=== PATIENT | male | born 1955 | race Hispanic/Latino ===

== ENCOUNTER 2018-05-04 22:24 | Inpatient (IN) | payer MEDICAID ==
[2018-05-04] MEDS ORDERED: Sodium Chloride 0.9% 1,000 ML IV ONE (23:33)
[2018-05-04 23:36] LABS: VENOUS BLOOD GAS BASE EXCESS 6.4 mmol/L (0.0-2.0); VENOUS BLOOD GAS PCO2 41 mmHg (40-60); VENOUS BLOOD GAS PO2 44 mm/Hg (30-55); VENOUS BLOOD PH 7.48 (7.32-7.43)
[2018-05-04 23:40] LABS: BASO # 0.1 K/uL (0.0-0.2); EOS # 0.1 K/uL (0.0-0.7); EOS % 1.3 % (0.0-4.0); HEMOGLOBIN 10.2 g/dL (12.0-18.0); LYMPH # 0.4 K/uL (1.0-4.3); LYMPH % 5.6 % (20.0-40.0); MEAN CELL VOLUME 88.3 fL (80.0-94.0); MEAN CORPUSCULAR HEMOGLOBIN 29.2 pg (27.0-31.0); MEAN CORPUSCULAR HGB CONC 33.1 g/dL (33.0-37.0); MEAN PLATELET VOLUME 7.9 fL (7.2-11.7); MONO # 0.5 K/uL (0.0-0.8); MONO % 7.6 % (0.0-10.0); NEUT % 84.5 % (50.0-75.0); NRBC % 0.1 % (0.0-2.0); PLATELET COUNT 186 K/uL (130-400); WHITE BLOOD COUNT 7.2 K/uL (4.8-10.8)
[2018-05-04 23:50] LABS: INR 1.2; PROTHROMBIN TIME 13.6 SECONDS (9.7-12.2)
[2018-05-04 23:52] LABS: ALB/GLOB RATIO 1.1 (1.0-2.1); ALBUMIN 3.7 g/dL (3.5-5.0); ALT/SGPT 27 U/L (21-72); AST/SGOT 31 U/L (17-59); BLOOD UREA NITROGEN 25 mg/dL (9-20); CALCIUM 8.9 mg/dl (8.6-10.4); GFR NON-AFRICAN AMERICAN > 60
--- NOTE | 2018-05-04 23:54 | C.PDOC ---
History Of Present Illness 63 year old male presents to the ER for abdominal pain, generalized achiness, and feeling lethargic for the past 3 days. Denies chest pain, nausea, or vomiting. Chief Complaint (Nursing): Abdominal Pain History Per: Patient History/Exam Limitations: no limitations Onset/Duration Of Symptoms: Days Current Symptoms Are (Timing): Still Present Quality Of Discomfort: Unable To Describe Exacerbating Factors: None Alleviating Factors: None Recent travel outside of the [place]: No Past Medical History Reviewed: Historical Data, Nursing Documentation, Vital Signs Vital Signs: Last Vital Signs Temp 103.1 F H 05/04/18 22:32 Pulse 117 H 05/04/18 22:32 Resp 20 05/04/18 22:32 BP 131/73 05/04/18 22:31 Pulse Ox 99 05/04/18 22:31 Family History: States: Unknown Family Hx - Social History Hx Alcohol Use: No Hx Substance Use: No - Immunization History Hx Tetanus Toxoid Vaccination: No Hx Influenza Vaccination: No Hx Pneumococcal Vaccination: No Review Of Systems Constitutional: Positive for: Other (Lethargic). Negative for: Fever, Chills Cardiovascular: Negative for: Chest Pain, Palpitations Respiratory: Negative for: Cough, Shortness of Breath Gastrointestinal: Positive for: Abdominal Pain. Negative for: Nausea, Vomiting Musculoskeletal: Positive for: Other (Generalized body aches) Physical Exam - Physical Exam Appears: Other (Clinically dehydrated) Skin: Normal Color, Warm, Dry Head: Atraumatic, Normacephalic Eye(s): bilateral: Normal Inspection Oral Mucosa: Dry Chest: Symmetrical, No Tenderness Cardiovascular: Rhythm Regular Respiratory: Normal Breath Sounds, No Rales, No Rhonchi, No Wheezing Gastrointestinal/Abdominal: Soft, Tenderness (Generalized), Guarding, No Rebound Extremity: Other (Severe swelling to bilateral lower extremities, erythema to right thigh tender to touch.) Neurological/Psych: Oriented x3, Normal Speech ED Course And Treatment - Laboratory Results Result Diagrams: 05/04/18 23:37 05/04/18 23:37 Lab Results: pO2 44 mm/Hg (30-55) 05/04/18 23:33 VBG pH 7.48 (7.32-7.43) H 05/04/18 23:33 VBG pCO2 41 mmHg (40-60) 05/04/18 23:33 VBG HCO3 29.5 mmol/L 05/04/18 23:33 VBG Total CO2 31.8 mmol/L (22-28) H 05/04/18 23:33 VBG O2 Sat (Calc) 84.3 % (40-65) H 05/04/18 23:33 VBG Base Excess 6.4 mmol/L (0.0-2.0) H 05/04/18 23:33 VBG Potassium 3.7 mmol/L (3.6-5.2) 05/04/18 23:33 Sodium 140.0 mmol/l (132-148) 05/04/18 23:33 Chloride 105.0 mmol/L (98-107) 05/04/18 23:33 Glucose 134 mg/dl (75-110) H 05/04/18 23:33 Lactate 1.7 mmol/L (0.7-2.1) 05/04/18 23:33 PT 13.6 SECONDS (9.7-12.2) H 05/04/18 23:37 INR 1.2 05/04/18 23:37 APTT 28 SECONDS (21-34) 05/04/18 23:37 Total Bilirubin 0.6 mg/dL (0.2-1.3) 05/04/18 23:37 AST 31 U/L (17-59) 05/04/18 23:37 ALT 27 U/L (21-72) 05/04/18 23:37 Alkaline Phosphatase 130 U/L (38-126) H 05/04/18 23:37 Total Protein 7.1 g/dL (6.3-8.3) 05/04/18 23:37 Albumin 3.7 g/dL (3.5-5.0) 05/04/18 23:37 Globulin 3.4 gm/dL (2.2-3.9) 05/04/18 23:37 Albumin/Globulin Ratio 1.1 (1.0-2.1) 05/04/18 23:37 O2 Sat by Pulse Oximetry: 99 (Room air) Pulse Ox Interpretation: Normal Progress Note: Blood work, CXR, and urinalysis ordered. Tylenol and IV fluids administered. Disposition Discussed With : Ava Chandler Doctor Will See Patient In The: Hospital Counseled Patient/Family Regarding: Diagnosis - Disposition Disposition: HOSPITALIZED Disposition Time: 05:08 Condition: STABLE Forms: [facility] (Honduran) - POA Present On Arrival: None - Clinical Impression Clinical Impression: Pneumonia, Cellulitis, DVT of proximal leg (deep vein thrombosis) - Scribe Statement The provider has reviewed the documentation as recorded by the Scribayse Ly All medical record entries made by the Scribe were at my direction and personally dictated by me. I have reviewed the chart and agree that the record accurately reflects my personal performance of the history, physical exam, medical decision making, and the department course for this patient. I have also personally directed, reviewed, and agree with the discharge instructions and disposition.
[2018-05-05 00:02] LABS: BANDS 1 % (0-2); LYMPHOCYTE 7 % (20-40); MONOCYTE 3 % (0-10); NEUTROPHIL 89 % (50-75); TOTAL CELLS COUNTED 100
[2018-05-05 00:03] LABS: PLATELET ESTIMATE NORMAL (NORMAL)
[2018-05-05] MEDS ORDERED: Sodium Chloride 0.9% 1,000 ML IV ONE (00:22)
[2018-05-05 01:24] LABS: SQUAMOUS EPITHIAL 2 /hpf (0-5); URINE BILIRUBIN NEGATIVE (NEGATIVE); URINE BLOOD 1+ (NEGATIVE); URINE CLARITY Clear (Clear); URINE COLOR Yellow (YELLOW); URINE GLUCOSE (UA) NORMAL (Normal); URINE LEUKOCYTE ESTERASE NEG Leu/uL (Negative); URINE PROTEIN NEGATIVE (NEGATIVE)
[2018-05-05] MEDS ORDERED: cefTRIAXone IV 1 gm in Dextros 50 ML IVPB ONE (03:40)
[2018-05-05] MEDS ORDERED: Enoxaparin 40 mg Syringe SC STA (03:43)
[2018-05-05] MEDS ORDERED: Azithromycin 500mg/250ML NS 500 MG/250 ML BAG IV STA (03:48)
[2018-05-05] MEDS ORDERED: Enoxaparin 40 mg Syringe ONE (04:11)
[2018-05-05] MEDS ORDERED: Azithromycin 500mg/250ML NS 500 MG/250 ML BAG IVPB ONE (04:19)
[2018-05-05] MEDS ORDERED: Iodixanol 320 MG/ML 100 ML BOTTLE IV ONE (05:39)
--- NOTE | 2018-05-05 07:41 | CT ---
CT abdomen and pelvis HISTORY: Abdominal pain. COMPARISON: None available. TECHNIQUE: Multiple contiguous axial images were performed through the abdomen and pelvis with the use of intravenous contrast. Subsequently, sagittal and coronal reformatted images were obtained. Findings: Small bilateral pleural effusions. Bibasilar atelectasis with some focal nodular consolidation seen at the anterior aspect of the left lower lobe. No pericardial effusion. Nodular and cirrhotic contour of the liver. Prominent perigastric and periesophageal varicosities. Cholelithiasis. Minimal gas density within the gallbladder on series series 3, images 61-66. Dilated common bile duct with mildly obstructing calculi in the distal aspect of the common bile duct suggestive for choledocholithiasis. 2.2 centimeter low-attenuation lesion seen within the spleen demonstrating a Hounsfield unit of 22, indeterminate. Adrenal glands are preserved. Pancreas is preserved. Underdistention and or mild thickening of the stomach. Kidneys are grossly preserved. Urinary bladder is grossly preserved. Lower abdominal bowel is grossly preserved. Colonic diverticulosis. Atherosclerotic calcification and plaque within the aorta. Bilateral gynecomastia. Degenerative changes in the spine. Impression: 1. Cholelithiasis. Minimal gas density in the gallbladder. This can be secondary to sphincterotomy or a fistulous tract between the gallbladder and the adjacent duodenum. Clinical correlation. 2. Dilated common bile duct. Mildly obstructing calculus in the distal aspect of the common bile duct with choledocholithiasis. Clinical correlation. 3. Cirrhotic liver. Prominent perigastric and periesophageal varicosities. 4. Bilateral inguinal lymphadenopathy measuring up to 3.7 x 1.8 centimeters on the right and up to 2.8 x 1.4 centimeters on the left. Clinical correlation. 5. 2.1 centimeter well-defined low-attenuation lesion in the spleen, nonspecific. Clinical correlation. 6. Small bilateral pleural effusions. Passive atelectasis and airspace disease of the lower lobes. 7. Colonic diverticulosis. 8. Atherosclerotic calcification and plaque within the aorta. 9. Bilateral gynecomastia. A preliminary report was generated at 6:30 a.m. on 05/05/[address] Alanna Kwong from [facility]
--- NOTE | 2018-05-05 09:10 | RAD ---
Chest x-ray single frontal view HISTORY: Fever. COMPARISON: None available. FINDINGS: Moderate venous congestion. Patchy consolidative opacification in the mid to lower lung zone with small pleural effusion. Cardiomegaly. Enlarged ectatic aorta. Degenerative changes in the spine and shoulders. Question deformities of several left lateral ribs. Biapical thickening with upper lobe granulomatous changes. IMPRESSION: Moderate venous congestion. Patchy consolidative opacification in the mid to lower lung zone with small pleural effusion. Cardiomegaly. Enlarged ectatic aorta. Degenerative changes in the spine and shoulders. Question deformities of several left lateral ribs. Biapical thickening with upper lobe granulomatous changes.
--- NOTE | 2018-05-05 13:29 | VASCLAB ---
Date of service: 05/05/2018 PROCEDURE: Left Lower Extremity Venous Duplex Exam. HISTORY: Swelling and tenderness, positive D-dimer PRIORS: None. TECHNIQUE: Left common femoral, femoral, popliteal and posterior tibial, peroneal and great saphenous veins were evaluated. Flow was assessed with color Doppler, compressibility, assessment of phasic flow and augmentation response. Report prepared by SALINA Verma FINDINGS: LEFT: 1. Common Femoral Vein: 1.1. Compressibility - Fully compressible: Thrombus - None : Flow - Phasic: Augmentation -Normal: Reflux - None. 2. Femoral Vein: 2.1. Compressibility - Fully compressible: Thrombus - None: Flow - Phasic: Augmentation -Normal: Reflux - None. 3. Popliteal Vein: 3.1. Compressibility - Fully compressible: Thrombus - None: Flow - Phasic: Augmentation -Normal: Reflux - None. 4. Posterior Tibial Vein: NOT VISIBLE DUE TO SWELLING 5. Peroneal Vein: NOT VISIBLE DUE TO SWELLING 6. Great Saphenous Vein (upper) 6.1. Compressibility - Fully compressible: Thrombus - None: Flow - Phasic: Augmentation - Normal: Reflux - None. OTHER FINDINGS: Normal venous flow noted in the RIGHT common femoral vein. IMPRESSION: No evidence of deep or superficial vein thrombosis of the left lower extremity, for the examined veins. Technically difficult exam, due to patient intolerance to probe compressions.
[2018-05-05] MEDS: Piperacill/Tazo 3.375gm in Dex 3.375 GM/50 ML BAG IVPB SCH (17:42)
[2018-05-05] MEDS: Enoxaparin 120 mg Syringe SC SCH (18:35)
[2018-05-05 19:27] VITALS: RESP 20
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
[2018-05-06] MEDS: Piperacill/Tazo 3.375gm in Dex 3.375 GM/50 ML BAG IVPB SCH ×3 (01:00→17:49)
[2018-05-06] MEDS: Enoxaparin 120 mg Syringe SC SCH (03:18)
[2018-05-06 06:24] LABS: BARBITURATES, UR NEGATIVE (NEGATIVE); BENZODIAZEPINES, UR NEGATIVE (NEGATIVE); OPIATES, UR NEGATIVE (NEGATIVE); PHENCYCLIDINE, UR NEGATIVE (NEGATIVE)
--- NOTE | 2018-05-06 08:58 | CP.PCM.PCO ---
Physician Communication Note - Physician Communication Note Physician Communication Note: See above
[2018-05-06] MEDS: Enoxaparin 40 mg Syringe SC SCH (09:37)
--- NOTE | 2018-05-06 10:57 | CP.PCM.PN ---
Subjective - Date & Time of Evaluation Date of Evaluation: 05/06/18 Time of Evaluation: 10:54 - Subjective Subjective: still coughing legs swallen and severe dermatitis Objective - Vital Signs/Intake and Output Vital Signs (last 24 hours): Temp Pulse Resp BP Pulse Ox 98.0 F 72 20 113/63 94 L 05/06/18 07:45 05/06/18 07:45 05/06/18 07:45 05/06/18 07:45 05/06/18 07:45 Intake and Output: 05/06/18 05/06/18 06:59 18:59 Intake Total 250 Balance 250 - Medications Medications: Current Medications Acetaminophen (Tylenol 325mg Tab) 650 mg PO Q6 PRN PRN Reason: Pain, moderate (4-7) Last Admin: 05/06/18 03:19 Dose: 650 mg Enoxaparin Sodium (Lovenox) 40 mg SC DAILY [facility] Last Admin: 05/06/18 09:37 Dose: 40 mg Piperacillin Sod/Tazobactam Sod (Zosyn 3.375 Gm Iv Premix) 3.375 gm in 50 mls @ 100 mls/hr IVPB Q8H [facility]; Protocol Last Admin: 05/06/18 09:40 Dose: 100 mls/hr Methadone HCl (Methadone) 50 mg PO DAILY [facility] Last Admin: 05/06/18 09:37 Dose: 50 mg - Labs Labs: 05/04/18 23:37 05/04/18 23:37 PT 13.6 SECONDS (9.7-12.2) H 05/04/18 23:37 INR 1.2 05/04/18 23:37 APTT 28 SECONDS (21-34) 05/04/18 23:37 - Constitutional Appears: In Acute Distress - Head Exam Head Exam: ATRAUMATIC - Eye Exam Eye Exam: Normal appearance Pupil Exam: NORMAL ACCOMODATION - ENT Exam ENT Exam: Normal Exam - Neck Exam Neck Exam: Full ROM - Respiratory Exam Respiratory Exam: Decreased Breath Sounds - Cardiovascular Exam Cardiovascular Exam: REGULAR RHYTHM - GI/Abdominal Exam GI & Abdominal Exam: Soft - Rectal Exam Rectal Exam: NORMAL INSPECTION - Extremities Exam Additional comments: sawaled and dermatitos - Back Exam Back Exam: NORMAL INSPECTION - Neurological Exam Neurological Exam: Awake, Normal Gait, Oriented x3 - Psychiatric Exam Psychiatric exam: Normal Affect - Skin Skin Exam: Dry, Mottled Assessment and Plan - Assessment and Plan (Free Text) Assessment: ac brochitis pnumonitis lower ext dermatitis neuropathy Plan: as per orders
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
[2018-05-07] MEDS: Piperacill/Tazo 3.375gm in Dex 3.375 GM/50 ML BAG IVPB SCH ×3 (00:30→17:52)
[2018-05-07] MEDS: Enoxaparin 40 mg Syringe SC SCH (09:20)
[2018-05-07] MEDS: Ammonium Lactate 12% Lotion (225 g) EXT SCH (09:20)
--- NOTE | 2018-05-07 11:48 | CP.PCM.PN ---
Subjective - Date & Time of Evaluation Date of Evaluation: 05/07/18 Time of Evaluation: 11:45 - Subjective Subjective: pt still c/o of pain loer ext cough Objective - Vital Signs/Intake and Output Vital Signs (last 24 hours): Temp Pulse Resp BP Pulse Ox 98.1 F 80 20 153/80 H 95 05/07/18 08:00 05/07/18 08:00 05/07/18 08:00 05/07/18 08:00 05/07/18 08:00 Intake and Output: 05/07/18 05/07/18 06:59 18:59 Intake Total 800 Output Total 1200 Balance -400 - Medications Medications: Current Medications Acetaminophen (Tylenol 325mg Tab) 650 mg PO Q6 PRN PRN Reason: Pain, moderate (4-7) Last Admin: 05/07/18 00:45 Dose: 650 mg Enoxaparin Sodium (Lovenox) 40 mg SC DAILY [facility] Last Admin: 05/07/18 09:20 Dose: 40 mg Hydrocortisone (Cortizone 0.5% Cream) 0 applic TOP BID [facility] Last Admin: 05/07/18 09:21 Dose: 1 applic Piperacillin Sod/Tazobactam Sod (Zosyn 3.375 Gm Iv Premix) 3.375 gm in 50 mls @ 100 mls/hr IVPB Q8H [facility]; Protocol Last Admin: 05/07/18 08:07 Dose: 100 mls/hr Lactic Acid (Lac-Hydrin 12% Lotion (225 G)) 0 gm EXT DAILY [facility] Last Admin: 05/07/18 09:20 Dose: 1 applic Methadone HCl (Methadone) 50 mg PO DAILY [facility] Last Admin: 05/07/18 09:20 Dose: 50 mg - Labs Labs: 05/04/18 23:37 05/04/18 23:37 PT 13.6 SECONDS (9.7-12.2) H 05/04/18 23:37 INR 1.2 05/04/18 23:37 APTT 28 SECONDS (21-34) 05/04/18 23:37 - Constitutional Appears: In Acute Distress - Head Exam Head Exam: ATRAUMATIC - Eye Exam Eye Exam: Normal appearance Pupil Exam: NORMAL ACCOMODATION - ENT Exam ENT Exam: Mucous Membranes Moist - Neck Exam Neck Exam: Normal Inspection - Respiratory Exam Respiratory Exam: Decreased Breath Sounds - Cardiovascular Exam Cardiovascular Exam: REGULAR RHYTHM - GI/Abdominal Exam GI & Abdominal Exam: Normal Bowel Sounds - Rectal Exam Rectal Exam: NORMAL INSPECTION - Exam Exam: NORMAL INSPECTION - Extremities Exam Additional comments: cleane dressing on - Back Exam Back Exam: NORMAL INSPECTION - Neurological Exam Neurological Exam: Awake - Psychiatric Exam Psychiatric exam: Normal Affect - Skin Skin Exam: Normal Color, Pallor Assessment and Plan - Assessment and Plan (Free Text) Assessment: ac cough ac dermatitis pain lower ext neuropathy Plan: cont as per orders
[2018-05-08] MEDS: Piperacill/Tazo 3.375gm in Dex 3.375 GM/50 ML BAG IVPB SCH ×3 (00:15→16:58)
[2018-05-08] MEDS: Enoxaparin 40 mg Syringe SC SCH (09:19)
[2018-05-08] MEDS: Ammonium Lactate 12% Lotion (225 g) EXT SCH (09:53)
--- NOTE | 2018-05-08 10:37 | CP.PCM.PN ---
Subjective - Date & Time of Evaluation Date of Evaluation: 05/08/18 Time of Evaluation: 10:35 - Subjective Subjective: c/o of painlower ext and swallen and numness Objective - Vital Signs/Intake and Output Vital Signs (last 24 hours): Temp Pulse Resp BP Pulse Ox 97.8 F 66 20 119/73 96 05/08/18 08:00 05/08/18 08:00 05/08/18 08:00 05/08/18 08:00 05/08/18 08:00 Intake and Output: 05/08/18 05/08/18 06:59 18:59 Intake Total 350 Output Total 700 Balance -350 - Medications Medications: Current Medications Acetaminophen (Tylenol 325mg Tab) 650 mg PO Q6 PRN PRN Reason: Pain, moderate (4-7) Last Admin: 05/07/18 00:45 Dose: 650 mg Enoxaparin Sodium (Lovenox) 40 mg SC DAILY [facility] Last Admin: 05/08/18 09:19 Dose: 40 mg Furosemide (Lasix) 20 mg PO DAILY [facility] Gabapentin (Neurontin) 300 mg PO BID [facility] Last Admin: 05/08/18 09:19 Dose: 300 mg Hydrocortisone (Cortizone 0.5% Cream) 0 applic TOP BID [facility] Last Admin: 05/08/18 09:20 Dose: 1 applic Piperacillin Sod/Tazobactam Sod (Zosyn 3.375 Gm Iv Premix) 3.375 gm in 50 mls @ 100 mls/hr IVPB Q8H [facility]; Protocol Last Admin: 05/08/18 09:20 Dose: 100 mls/hr Lactic Acid (Lac-Hydrin 12% Lotion (225 G)) 0 gm EXT DAILY [facility] Last Admin: 05/08/18 09:53 Dose: 1 applic Methadone HCl (Methadone) 50 mg PO DAILY [facility] Last Admin: 05/08/18 09:19 Dose: 50 mg - Labs Labs: 05/04/18 23:37 05/04/18 23:37 PT 13.6 SECONDS (9.7-12.2) H 05/04/18 23:37 INR 1.2 05/04/18 23:37 APTT 28 SECONDS (21-34) 05/04/18 23:37 - Constitutional Appears: Non-toxic - Head Exam Head Exam: NORMAL INSPECTION - Eye Exam Eye Exam: Normal appearance Pupil Exam: NORMAL ACCOMODATION - ENT Exam ENT Exam: Mucous Membranes Moist - Neck Exam Neck Exam: Full ROM - Respiratory Exam Respiratory Exam: Clear to Ausculation Bilateral, Rhonchi - Cardiovascular Exam Cardiovascular Exam: REGULAR RHYTHM - GI/Abdominal Exam GI & Abdominal Exam: Normal Bowel Sounds - Rectal Exam Rectal Exam: NORMAL INSPECTION - Exam Exam: NORMAL INSPECTION - Extremities Exam Extremities Exam: Pedal Edema, Tenderness - Back Exam Back Exam: NORMAL INSPECTION - Neurological Exam Neurological Exam: Awake, Oriented x3 - Psychiatric Exam Psychiatric exam: Flat Affect - Skin Skin Exam: Normal Color, Pallor Assessment and Plan - Assessment and Plan (Free Text) Assessment: asthma infection swallen legs aneamia dm Plan: as per orders and arrange for placement
[2018-05-08] MEDS: Albuterol 0.083% Inhal Sol (2.5 mg/3 mL) UD INH SCH ×2 (14:02→19:42)
[2018-05-09] MEDS: Piperacill/Tazo 3.375gm in Dex 3.375 GM/50 ML BAG IVPB SCH ×3 (00:24→17:40)
[2018-05-09] MEDS: Albuterol 0.083% Inhal Sol (2.5 mg/3 mL) UD INH SCH ×5 (02:44→21:05)
[2018-05-09] MEDS: Enoxaparin 40 mg Syringe SC SCH (09:36)
[2018-05-09] MEDS: Ammonium Lactate 12% Lotion (225 g) EXT SCH (09:48)
[2018-05-10] MEDS: Piperacill/Tazo 3.375gm in Dex 3.375 GM/50 ML BAG IVPB SCH ×3 (01:30→17:38)
[2018-05-10] MEDS: Albuterol 0.083% Inhal Sol (2.5 mg/3 mL) UD INH SCH ×4 (01:44→19:45)
[2018-05-10] MEDS: Enoxaparin 40 mg Syringe SC SCH (09:53)
[2018-05-10] MEDS: Ammonium Lactate 12% Lotion (225 g) EXT SCH (10:00)
--- NOTE | 2018-05-10 10:49 | CP.PCM.PN ---
Subjective - Date & Time of Evaluation Date of Evaluation: 05/10/18 Time of Evaluation: 10:47 - Subjective Subjective: pt c/o of sore throat and cough Objective - Vital Signs/Intake and Output Vital Signs (last 24 hours): Temp Pulse Resp BP Pulse Ox 98.2 F 73 20 122/66 96 05/10/18 06:00 05/09/18 23:11 05/09/18 23:11 05/10/18 09:52 05/09/18 23:11 Intake and Output: 05/10/18 05/10/18 06:59 18:59 Intake Total 700 Output Total 400 Balance 300 - Medications Medications: Current Medications Acetaminophen (Tylenol 325mg Tab) 650 mg PO Q6 PRN PRN Reason: Pain, moderate (4-7) Last Admin: 05/07/18 00:45 Dose: 650 mg Albuterol Sulfate (Albuterol 0.083% Inhal Shantell (2.5 Mg/3 Ml) Ud) 2.5 mg INH RQ6 [facility] Last Admin: 05/10/18 07:05 Dose: 2.5 mg Enoxaparin Sodium (Lovenox) 40 mg SC DAILY [facility] Last Admin: 05/10/18 09:53 Dose: 40 mg Furosemide (Lasix) 20 mg PO DAILY [facility] Last Admin: 05/10/18 09:52 Dose: 20 mg Gabapentin (Neurontin) 300 mg PO BID [facility] Last Admin: 05/10/18 09:53 Dose: 300 mg Hydrocortisone (Cortizone 0.5% Cream) 0 applic TOP BID [facility] Last Admin: 05/10/18 10:00 Dose: 1 applic Piperacillin Sod/Tazobactam Sod (Zosyn 3.375 Gm Iv Premix) 3.375 gm in 50 mls @ 100 mls/hr IVPB Q8H [facility]; Protocol Last Admin: 05/10/18 08:35 Dose: 100 mls/hr Lactic Acid (Lac-Hydrin 12% Lotion (225 G)) 0 gm EXT DAILY [facility] Last Admin: 05/10/18 10:00 Dose: 1 applic Methadone HCl (Methadone) 50 mg PO DAILY [facility] Last Admin: 05/10/18 09:53 Dose: 50 mg - Labs Labs: 05/04/18 23:37 05/04/18 23:37 PT 13.6 SECONDS (9.7-12.2) H 05/04/18 23:37 INR 1.2 05/04/18 23:37 APTT 28 SECONDS (21-34) 05/04/18 23:37 - Constitutional Appears: Non-toxic - Head Exam Head Exam: ATRAUMATIC - Eye Exam Eye Exam: Normal appearance Pupil Exam: NORMAL ACCOMODATION - ENT Exam ENT Exam: Mucous Membranes Moist - Neck Exam Neck Exam: Full ROM - Respiratory Exam Respiratory Exam: Decreased Breath Sounds - Cardiovascular Exam Cardiovascular Exam: REGULAR RHYTHM - GI/Abdominal Exam GI & Abdominal Exam: Normal Bowel Sounds - Extremities Exam Additional comments: dermatitis - Back Exam Back Exam: NORMAL INSPECTION - Neurological Exam Neurological Exam: Alert, Awake, Oriented x3 - Skin Skin Exam: Pallor Assessment and Plan - Assessment and Plan (Free Text) Assessment: dm dermatitis ac pharyngitis cough Plan: as per orders
[2018-05-10] MEDS: Benzocaine/Menthol (Cepacol) Lozenge MT SCH ×2 (13:21→17:36)
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
--- NOTE | 2018-05-10 23:04 | CP.PCM.PN ---
Subjective - Date & Time of Evaluation Date of Evaluation: 05/10/18 Time of Evaluation: 13:00 - Subjective Subjective: Podiatry Progress Note for Dr. Johnson 63 year old male patient seen and evaluated for bilateral edema with xerosis. Patient reports has been having nursing change apply lotion to bilateral foot and apply JERZY wraps. Patient reports having swelling to lower extremity for a long time. Denies nausea, fever, shortness of breath, chest pains or chills. Objective - Vital Signs/Intake and Output Vital Signs (last 24 hours): Temp Pulse Resp BP Pulse Ox 98.6 F 74 20 100/58 L 93 L 05/10/18 16:40 05/10/18 16:40 05/10/18 16:40 05/10/18 16:40 05/10/18 16:40 Intake and Output: 05/10/18 05/11/18 18:59 06:59 Intake Total 350 400 Balance 350 400 - Medications Medications: Current Medications Acetaminophen (Tylenol 325mg Tab) 650 mg PO Q6 PRN PRN Reason: Pain, moderate (4-7) Last Admin: 05/10/18 15:07 Dose: 650 mg Albuterol Sulfate (Albuterol 0.083% Inhal Shantell (2.5 Mg/3 Ml) Ud) 2.5 mg INH RQ6 [facility] Last Admin: 05/10/18 19:45 Dose: 2.5 mg Benzocaine/Menthol (Cepacol Sore Throat) 1 pankaj MT TID [facility] Last Admin: 05/10/18 17:36 Dose: 1 pankaj Enoxaparin Sodium (Lovenox) 40 mg SC DAILY [facility] Last Admin: 05/10/18 09:53 Dose: 40 mg Furosemide (Lasix) 20 mg PO DAILY [facility] Last Admin: 05/10/18 09:52 Dose: 20 mg Gabapentin (Neurontin) 300 mg PO BID [facility] Last Admin: 05/10/18 17:35 Dose: 300 mg Hydrocortisone (Cortizone 0.5% Cream) 0 applic TOP BID [facility] Last Admin: 05/10/18 17:34 Dose: 1 applic Piperacillin Sod/Tazobactam Sod (Zosyn 3.375 Gm Iv Premix) 3.375 gm in 50 mls @ 100 mls/hr IVPB Q8H [facility]; Protocol Last Admin: 05/10/18 17:38 Dose: 100 mls/hr Lactic Acid (Lac-Hydrin 12% Lotion (225 G)) 0 gm EXT DAILY [facility] Last Admin: 05/10/18 10:00 Dose: 1 applic Methadone HCl (Methadone) 50 mg PO DAILY [facility] Last Admin: 05/10/18 09:53 Dose: 50 mg - Labs Labs: 05/04/18 23:37 05/04/18 23:37 PT 13.6 SECONDS (9.7-12.2) H 05/04/18 23:37 INR 1.2 05/04/18 23:37 APTT 28 SECONDS (21-34) 05/04/18 23:37 - Constitutional Appears: Well, Non-toxic, No Acute Distress - Extremities Exam Extremities Exam: absent: Calf Tenderness Additional comments: Vascular: DP/PT pulses 1/4, CFT < 3 seconds to all digits, TG warm to warm, pedal hair absent, +1 pitting edema to legs circumfrentially Ortho: Tenderness to palpation of b/l lower extremities, MMT 4/5 in all compartments, no pain upon palpation of calf compression bilaterally Neuro: Gross and protective sensation intact Derm: Patchy xerosis, scales, and lichenification noted circumfrentially to b/l legs. No drainage, no purulence, no open wounds appreciated. Mild erythema appreciated to bilateral lower extremities beginning at the tibial tuberosity extending distally to the digits. No interdigital maceration appreciated. Small varicosites appreciated to the anterior aspect of legs bilaterally - Neurological Exam Neurological Exam: Alert, Awake, Oriented x3 Assessment and Plan - Assessment and Plan (Free Text) Assessment: 63 year old male patient with bilateral edema and xerosis- stable, no infection Plan: Patient seen and evaluated with all questions and concerns addressed Patient discussed in detail with Dr. Johnson VSS, WBC on 05/04/18 7.2 LE US; no evidence of DVT B/L lower extremities well hydrated with lotion and JERZY wraps applied to aid in reducing LE edema Ammonium lactate lotion ordered and to be applied daily Thank you for the consult and allowing us to partake in the care of this patient Patient is stable per podiatry standpoint Patient to follow up with Dr. Johnson upon discharge within 1 week in his office Continue to appear lotion everyday, let dry, and wrap JERZY for compression
[2018-05-11] MEDS: Piperacill/Tazo 3.375gm in Dex 3.375 GM/50 ML BAG IVPB SCH ×3 (00:30→17:00)
[2018-05-11] MEDS: Albuterol 0.083% Inhal Sol (2.5 mg/3 mL) UD INH SCH ×4 (01:32→19:53)
[2018-05-11] MEDS: Ammonium Lactate 12% Lotion (225 g) EXT SCH (10:03)
[2018-05-11] MEDS: Enoxaparin 40 mg Syringe SC SCH (10:03)
[2018-05-11] MEDS: Benzocaine/Menthol (Cepacol) Lozenge MT SCH ×3 (10:03→17:30)
--- NOTE | 2018-05-11 11:21 | CP.PCM.PN ---
Subjective - Date & Time of Evaluation Date of Evaluation: 05/11/18 Time of Evaluation: 11:18 - Subjective Subjective: pt still c/o of cough leg pain Objective - Vital Signs/Intake and Output Vital Signs (last 24 hours): Temp Pulse Resp BP Pulse Ox 97.8 F 69 20 132/78 99 05/11/18 07:24 05/11/18 07:24 05/11/18 07:24 05/11/18 10:04 05/11/18 07:24 Intake and Output: 05/11/18 05/11/18 06:59 18:59 Intake Total 850 Balance 850 - Medications Medications: Current Medications Acetaminophen (Tylenol 325mg Tab) 650 mg PO Q6 PRN PRN Reason: Pain, moderate (4-7) Last Admin: 05/10/18 15:07 Dose: 650 mg Albuterol Sulfate (Albuterol 0.083% Inhal Shantell (2.5 Mg/3 Ml) Ud) 2.5 mg INH RQ6 [facility] Last Admin: 05/11/18 07:36 Dose: 2.5 mg Benzocaine/Menthol (Cepacol Sore Throat) 1 pankaj MT TID [facility] Last Admin: 05/11/18 10:03 Dose: 1 pankaj Buspirone HCl (Buspar) 10 mg PO BID [facility] Enoxaparin Sodium (Lovenox) 40 mg SC DAILY [facility] Last Admin: 05/11/18 10:03 Dose: 40 mg Furosemide (Lasix) 20 mg PO DAILY [facility] Last Admin: 05/11/18 10:04 Dose: 20 mg Gabapentin (Neurontin) 300 mg PO BID [facility] Last Admin: 05/11/18 10:02 Dose: 300 mg Hydrocortisone (Cortizone 0.5% Cream) 0 applic TOP BID [facility] Last Admin: 05/11/18 10:03 Dose: 1 applic Piperacillin Sod/Tazobactam Sod (Zosyn 3.375 Gm Iv Premix) 3.375 gm in 50 mls @ 100 mls/hr IVPB Q8H [facility]; Protocol Last Admin: 05/11/18 10:00 Dose: 100 mls/hr Lactic Acid (Lac-Hydrin 12% Lotion (225 G)) 0 gm EXT DAILY [facility] Last Admin: 05/11/18 10:03 Dose: 1 applic Methadone HCl (Methadone) 50 mg PO DAILY [facility] Last Admin: 05/11/18 10:02 Dose: 50 mg Mupirocin (Bactroban Ointment) 2 gm TOP BID [facility] - Labs Labs: 05/04/18 23:37 05/04/18 23:37 PT 13.6 SECONDS (9.7-12.2) H 05/04/18 23:37 INR 1.2 05/04/18 23:37 APTT 28 SECONDS (21-34) 05/04/18 23:37 - Constitutional Appears: Non-toxic - Head Exam Head Exam: NORMAL INSPECTION - Eye Exam Eye Exam: Normal appearance Pupil Exam: NORMAL ACCOMODATION - ENT Exam ENT Exam: Normal Exam - Neck Exam Neck Exam: Normal Inspection - Respiratory Exam Respiratory Exam: Decreased Breath Sounds, Rales - Cardiovascular Exam Cardiovascular Exam: REGULAR RHYTHM - GI/Abdominal Exam GI & Abdominal Exam: Soft - Extremities Exam Additional comments: dry skin and skin leasions legs - Neurological Exam Neurological Exam: Alert, Awake - Psychiatric Exam Psychiatric exam: Normal Affect - Skin Skin Exam: Pallor Assessment and Plan - Assessment and Plan (Free Text) Assessment: bronchitis legs pain dermatitis skin leasions Plan: as ordered
[2018-05-12] MEDS: Piperacill/Tazo 3.375gm in Dex 3.375 GM/50 ML BAG IVPB SCH ×3 (00:25→17:39)
[2018-05-12] MEDS: Albuterol 0.083% Inhal Sol (2.5 mg/3 mL) UD INH SCH ×4 (02:42→20:58)
[2018-05-12] MEDS: Enoxaparin 40 mg Syringe SC SCH (09:26)
[2018-05-12] MEDS: Benzocaine/Menthol (Cepacol) Lozenge MT SCH ×3 (09:26→17:34)
[2018-05-12] MEDS: Ammonium Lactate 12% Lotion (225 g) EXT SCH (09:28)
--- NOTE | 2018-05-12 18:35 | CP.PCM.PN ---
Subjective - Date & Time of Evaluation Date of Evaluation: 05/12/18 Time of Evaluation: 18:32 - Subjective Subjective: c/o of pain both legs leasions infection cough Objective - Vital Signs/Intake and Output Vital Signs (last 24 hours): Temp Pulse Resp BP Pulse Ox 97.8 F 68 20 109/71 96 05/12/18 08:00 05/12/18 08:00 05/12/18 08:00 05/12/18 09:27 05/12/18 08:00 Intake and Output: 05/12/18 05/12/18 06:59 18:59 Intake Total 700 530 Balance 700 530 - Medications Medications: Current Medications Acetaminophen (Tylenol 325mg Tab) 650 mg PO Q6 PRN PRN Reason: Pain, moderate (4-7) Last Admin: 05/11/18 22:04 Dose: 650 mg Albuterol Sulfate (Albuterol 0.083% Inhal Shantell (2.5 Mg/3 Ml) Ud) 2.5 mg INH RQ6 [facility] Last Admin: 05/12/18 15:31 Dose: Not Given Benzocaine/Menthol (Cepacol Sore Throat) 1 pankaj MT TID [facility] Last Admin: 05/12/18 17:34 Dose: 1 pankaj Buspirone HCl (Buspar) 10 mg PO BID [facility] Last Admin: 05/12/18 17:38 Dose: 10 mg Enoxaparin Sodium (Lovenox) 40 mg SC DAILY [facility] Last Admin: 05/12/18 09:26 Dose: 40 mg Furosemide (Lasix) 20 mg PO DAILY [facility] Last Admin: 05/12/18 09:27 Dose: 20 mg Gabapentin (Neurontin) 300 mg PO BID [facility] Last Admin: 05/12/18 17:38 Dose: 300 mg Hydrocortisone (Cortizone 0.5% Cream) 0 applic TOP BID [facility] Last Admin: 05/12/18 17:34 Dose: 1 applic Piperacillin Sod/Tazobactam Sod (Zosyn 3.375 Gm Iv Premix) 3.375 gm in 50 mls @ 100 mls/hr IVPB Q8H [facility]; Protocol Last Admin: 05/12/18 17:39 Dose: 100 mls/hr Lactic Acid (Lac-Hydrin 12% Lotion (225 G)) 0 gm EXT DAILY [facility] Last Admin: 05/12/18 09:28 Dose: 1 applic Methadone HCl (Methadone) 50 mg PO DAILY [facility] Last Admin: 05/12/18 09:26 Dose: 50 mg Mupirocin (Bactroban Ointment) 0 gm TOP BID [facility] Last Admin: 05/12/18 17:34 Dose: 1 applic - Labs Labs: 05/04/18 23:37 05/04/18 23:37 PT 13.6 SECONDS (9.7-12.2) H 05/04/18 23:37 INR 1.2 05/04/18 23:37 APTT 28 SECONDS (21-34) 05/04/18 23:37 - Constitutional Appears: In Acute Distress - Head Exam Head Exam: ATRAUMATIC - Eye Exam Eye Exam: Normal appearance Pupil Exam: NORMAL ACCOMODATION - ENT Exam ENT Exam: Mucous Membranes Moist - Neck Exam Neck Exam: Full ROM - Respiratory Exam Respiratory Exam: Decreased Breath Sounds - Cardiovascular Exam Cardiovascular Exam: REGULAR RHYTHM - GI/Abdominal Exam GI & Abdominal Exam: Normal Bowel Sounds - Extremities Exam Additional comments: dermatitis and infection - Neurological Exam Neurological Exam: Awake, Oriented x3 - Psychiatric Exam Psychiatric exam: Normal Affect - Skin Skin Exam: Pallor Assessment and Plan - Assessment and Plan (Free Text) Assessment: acute leg infection and pain weekness cough aneamia dm Plan: cont as per orders
[2018-05-13] MEDS: Piperacill/Tazo 3.375gm in Dex 3.375 GM/50 ML BAG IVPB SCH ×3 (01:03→17:31)
[2018-05-13] MEDS: Albuterol 0.083% Inhal Sol (2.5 mg/3 mL) UD INH SCH ×3 (01:46→13:30)
[2018-05-13] MEDS: Benzocaine/Menthol (Cepacol) Lozenge MT SCH ×3 (10:19→17:32)
[2018-05-13] MEDS: Enoxaparin 40 mg Syringe SC SCH (10:19)
[2018-05-13] MEDS: Ammonium Lactate 12% Lotion (225 g) EXT SCH (10:19)
--- NOTE | 2018-05-13 10:48 | CP.PCM.PN ---
Subjective - Date & Time of Evaluation Date of Evaluation: 05/13/18 Time of Evaluation: 10:45 - Subjective Subjective: still has pain legs weeke less cuogh Objective - Vital Signs/Intake and Output Vital Signs (last 24 hours): Temp Pulse Resp BP Pulse Ox 97.4 F L 65 20 122/67 96 05/13/18 07:45 05/13/18 07:45 05/13/18 07:45 05/13/18 10:20 05/13/18 07:45 Intake and Output: 05/13/18 05/13/18 06:59 18:59 Intake Total 600 Balance 600 - Medications Medications: Current Medications Acetaminophen (Tylenol 325mg Tab) 650 mg PO Q6 PRN PRN Reason: Pain, moderate (4-7) Last Admin: 05/11/18 22:04 Dose: 650 mg Albuterol Sulfate (Albuterol 0.083% Inhal Shantell (2.5 Mg/3 Ml) Ud) 2.5 mg INH RQ6 [facility] Last Admin: 05/13/18 07:35 Dose: 2.5 mg Benzocaine/Menthol (Cepacol Sore Throat) 1 pankaj MT TID [facility] Last Admin: 05/13/18 10:19 Dose: Not Given Buspirone HCl (Buspar) 10 mg PO BID [facility] Last Admin: 05/13/18 10:19 Dose: 10 mg Enoxaparin Sodium (Lovenox) 40 mg SC DAILY [facility] Last Admin: 05/13/18 10:19 Dose: 40 mg Furosemide (Lasix) 20 mg PO DAILY [facility] Last Admin: 05/13/18 10:20 Dose: 20 mg Gabapentin (Neurontin) 300 mg PO BID [facility] Last Admin: 05/13/18 10:19 Dose: 300 mg Hydrocortisone (Cortizone 0.5% Cream) 0 applic TOP BID [facility] Last Admin: 05/13/18 10:18 Dose: 1 applic Piperacillin Sod/Tazobactam Sod (Zosyn 3.375 Gm Iv Premix) 3.375 gm in 50 mls @ 100 mls/hr IVPB Q8H [facility]; Protocol Last Admin: 05/13/18 10:21 Dose: 100 mls/hr Lactic Acid (Lac-Hydrin 12% Lotion (225 G)) 0 gm EXT DAILY [facility] Last Admin: 01/18/19 10:19 Dose: 1 applic Methadone HCl (Methadone) 50 mg PO DAILY [facility] Last Admin: 05/13/18 10:19 Dose: 50 mg Mupirocin (Bactroban Ointment) 0 gm TOP BID [facility] Last Admin: 05/13/18 10:19 Dose: 1 applic - Labs Labs: 05/04/18 23:37 05/04/18 23:37 PT 13.6 SECONDS (9.7-12.2) H 05/04/18 23:37 INR 1.2 05/04/18 23:37 APTT 28 SECONDS (21-34) 05/04/18 23:37 - Constitutional Appears: Non-toxic - Head Exam Head Exam: ATRAUMATIC - Eye Exam Eye Exam: Normal appearance Pupil Exam: NORMAL ACCOMODATION - ENT Exam ENT Exam: Normal External Ear Exam - Neck Exam Neck Exam: Full ROM - Respiratory Exam Respiratory Exam: Decreased Breath Sounds - Cardiovascular Exam Cardiovascular Exam: REGULAR RHYTHM - GI/Abdominal Exam GI & Abdominal Exam: Normal Bowel Sounds - Extremities Exam Additional comments: legs leasions amnd dermatitis - Back Exam Back Exam: CVA tenderness (L) - Neurological Exam Neurological Exam: Abnormal Gait - Psychiatric Exam Psychiatric exam: Normal Affect - Skin Skin Exam: Pallor Assessment and Plan - Assessment and Plan (Free Text) Assessment: bronchitis beter leg pain dermatitis generalised weekness Plan: cont as per orders
[2018-05-14] MEDS: Piperacill/Tazo 3.375gm in Dex 3.375 GM/50 ML BAG IVPB SCH ×3 (00:45→17:31)
[2018-05-14] MEDS: Ammonium Lactate 12% Lotion (225 g) EXT SCH (09:57)
[2018-05-14] MEDS: Benzocaine/Menthol (Cepacol) Lozenge MT SCH ×3 (09:59→17:22)
--- NOTE | 2018-05-14 13:07 | CP.PCM.PN ---
Subjective - Date & Time of Evaluation Date of Evaluation: 05/14/18 Time of Evaluation: 13:04 - Subjective Subjective: pt seen and examined still has pain lower extremity less cough Objective - Vital Signs/Intake and Output Vital Signs (last 24 hours): Temp Pulse Resp BP Pulse Ox 97.9 F 67 20 124/65 95 05/14/18 08:39 05/14/18 08:39 05/14/18 08:39 05/14/18 09:58 05/14/18 08:39 Intake and Output: 05/14/18 05/14/18 06:59 18:59 Intake Total 350 Balance 350 - Medications Medications: Current Medications Acetaminophen (Tylenol 325mg Tab) 650 mg PO Q6 PRN PRN Reason: Pain, moderate (4-7) Last Admin: 05/11/18 22:04 Dose: 650 mg Benzocaine/Menthol (Cepacol Sore Throat) 1 pankaj MT TID [facility] Last Admin: 05/14/18 09:59 Dose: 1 pankaj Buspirone HCl (Buspar) 10 mg PO BID [facility] Last Admin: 05/14/18 09:58 Dose: 10 mg Furosemide (Lasix) 20 mg PO DAILY [facility] Last Admin: 05/14/18 09:58 Dose: 20 mg Gabapentin (Neurontin) 300 mg PO BID [facility] Last Admin: 05/14/18 09:59 Dose: 300 mg Hydrocortisone (Cortizone 0.5% Cream) 0 applic TOP BID [facility] Last Admin: 05/14/18 09:57 Dose: 1 applic Piperacillin Sod/Tazobactam Sod (Zosyn 3.375 Gm Iv Premix) 3.375 gm in 50 mls @ 100 mls/hr IVPB Q8H [facility]; Protocol Last Admin: 05/14/18 08:06 Dose: 100 mls/hr Lactic Acid (Lac-Hydrin 12% Lotion (225 G)) 0 gm EXT DAILY [facility] Last Admin: 05/14/18 09:57 Dose: 1 applic Methadone HCl (Methadone) 50 mg PO DAILY [facility] Last Admin: 05/14/18 09:59 Dose: 50 mg Mupirocin (Bactroban Ointment) 0 gm TOP BID [facility] Last Admin: 05/14/18 09:57 Dose: 1 applic - Labs Labs: 05/04/18 23:37 05/04/18 23:37 PT 13.6 SECONDS (9.7-12.2) H 05/04/18 23:37 INR 1.2 05/04/18 23:37 APTT 28 SECONDS (21-34) 05/04/18 23:37 - Constitutional Appears: Non-toxic - Head Exam Head Exam: ATRAUMATIC - Eye Exam Eye Exam: Normal appearance Pupil Exam: NORMAL ACCOMODATION - ENT Exam ENT Exam: Normal Exam - Neck Exam Neck Exam: Full ROM - Respiratory Exam Respiratory Exam: Decreased Breath Sounds - Cardiovascular Exam Cardiovascular Exam: REGULAR RHYTHM - GI/Abdominal Exam GI & Abdominal Exam: Normal Bowel Sounds - Rectal Exam Rectal Exam: NORMAL INSPECTION - Extremities Exam Additional comments: skin rough dermatitis and leasions - Back Exam Back Exam: NORMAL INSPECTION - Neurological Exam Neurological Exam: Oriented x3 - Psychiatric Exam Psychiatric exam: Normal Affect - Skin Skin Exam: Normal Color, Pallor Assessment and Plan - Assessment and Plan (Free Text) Assessment: ac bronchitis ac pain lower ext dermatitis generalised weekness on methadone Plan: cont as per orders
[2018-05-15] MEDS: Piperacill/Tazo 3.375gm in Dex 3.375 GM/50 ML BAG IVPB SCH ×2 (00:10→08:30)
[2018-05-15] MEDS: Ammonium Lactate 12% Lotion (225 g) EXT SCH (09:14)
[2018-05-15] MEDS: Benzocaine/Menthol (Cepacol) Lozenge MT SCH ×3 (09:14→22:10)
--- NOTE | 2018-05-15 11:24 | CP.PCM.PN ---
Subjective - Date & Time of Evaluation Date of Evaluation: 05/15/18 Time of Evaluation: 11:22 - Subjective Subjective: pain legs weekness still cough and sob wheesing Objective - Vital Signs/Intake and Output Vital Signs (last 24 hours): Temp Pulse Resp BP Pulse Ox 97.7 F 59 L 20 128/74 20 L 05/15/18 08:23 05/15/18 08:23 05/15/18 08:23 05/15/18 09:15 05/15/18 08:23 Intake and Output: 05/15/18 05/15/18 06:59 18:59 Intake Total 450 Balance 450 - Medications Medications: Current Medications Acetaminophen (Tylenol 325mg Tab) 650 mg PO Q6 PRN PRN Reason: Pain, moderate (4-7) Last Admin: 05/11/18 22:04 Dose: 650 mg Benzocaine/Menthol (Cepacol Sore Throat) 1 pankaj MT TID [facility] Last Admin: 05/15/18 09:14 Dose: 1 pankaj Buspirone HCl (Buspar) 10 mg PO BID [facility] Last Admin: 05/15/18 09:33 Dose: 10 mg Furosemide (Lasix) 20 mg PO DAILY [facility] Last Admin: 05/15/18 09:15 Dose: 20 mg Gabapentin (Neurontin) 300 mg PO BID [facility] Last Admin: 05/15/18 09:15 Dose: 300 mg Hydrocortisone (Cortizone 0.5% Cream) 0 applic TOP BID [facility] Last Admin: 05/15/18 09:14 Dose: 1 applic Lactic Acid (Lac-Hydrin 12% Lotion (225 G)) 0 gm EXT DAILY [facility] Last Admin: 05/15/18 09:14 Dose: 1 applic Methadone HCl (Methadone) 50 mg PO DAILY [facility] Last Admin: 05/15/18 09:15 Dose: 50 mg Mupirocin (Bactroban Ointment) 0 gm TOP BID [facility] Last Admin: 05/15/18 09:14 Dose: 1 applic - Labs Labs: 05/04/18 23:37 05/04/18 23:37 PT 13.6 SECONDS (9.7-12.2) H 05/04/18 23:37 INR 1.2 05/04/18 23:37 APTT 28 SECONDS (21-34) 05/04/18 23:37 - Head Exam Head Exam: ATRAUMATIC - ENT Exam ENT Exam: Mucous Membranes Moist - Neck Exam Neck Exam: Full ROM - Respiratory Exam Respiratory Exam: Decreased Breath Sounds, Rales, Wheezes - Cardiovascular Exam Cardiovascular Exam: REGULAR RHYTHM - GI/Abdominal Exam GI & Abdominal Exam: Normal Bowel Sounds - Exam Exam: NORMAL INSPECTION - Extremities Exam Extremities Exam: Tenderness - Neurological Exam Neurological Exam: Awake - Psychiatric Exam Psychiatric exam: Normal Affect - Skin Skin Exam: Normal Color Assessment and Plan - Assessment and Plan (Free Text) Assessment: copd bronchitis pain lower ext Plan: as orderd
[2018-05-16] MEDS: Albuterol-Ipratrop 3 mg / 0.5 (3 ml) UD INH SCH ×4 (02:23→19:50)
[2018-05-16] MEDS: Ammonium Lactate 12% Lotion (225 g) EXT SCH (09:51)
[2018-05-16] MEDS: Benzocaine/Menthol (Cepacol) Lozenge MT SCH ×3 (09:51→17:16)
[2018-05-17] MEDS: Albuterol-Ipratrop 3 mg / 0.5 (3 ml) UD INH SCH ×4 (02:35→20:22)
--- NOTE | 2018-05-17 10:00 | CP.PCM.PN ---
Subjective - Date & Time of Evaluation Date of Evaluation: 05/17/18 Time of Evaluation: 09:57 - Subjective Subjective: lrgs hurt itchy lieeding skin Objective - Vital Signs/Intake and Output Vital Signs (last 24 hours): Temp Pulse Resp BP Pulse Ox 98.1 F 62 20 104/61 96 05/17/18 07:25 05/17/18 07:25 05/17/18 07:25 05/17/18 07:25 05/17/18 07:25 Intake and Output: 05/17/18 05/17/18 06:59 18:59 Intake Total 240 Balance 240 - Medications Medications: Current Medications Acetaminophen (Tylenol 325mg Tab) 650 mg PO Q6 PRN PRN Reason: Pain, moderate (4-7) Last Admin: 05/16/18 23:54 Dose: 650 mg Albuterol/Ipratropium (Duoneb 3 Mg/0.5 Mg (3 Ml) Ud) 3 ml INH RQ6 [facility] Last Admin: 05/17/18 07:35 Dose: 3 ml Benzocaine/Menthol (Cepacol Sore Throat) 1 pankaj MT TID [facility] Last Admin: 05/16/18 17:16 Dose: 1 pankaj Buspirone HCl (Buspar) 10 mg PO BID [facility] Last Admin: 05/16/18 17:17 Dose: 10 mg Furosemide (Lasix) 20 mg PO DAILY [facility] Last Admin: 05/16/18 09:53 Dose: 20 mg Gabapentin (Neurontin) 300 mg PO BID [facility] Last Admin: 05/16/18 17:17 Dose: 300 mg Hydrocortisone (Cortizone 0.5% Cream) 0 applic TOP BID [facility] Last Admin: 05/16/18 17:16 Dose: 1 applic Lactic Acid (Lac-Hydrin 12% Lotion (225 G)) 0 gm EXT DAILY [facility] Last Admin: 05/16/18 09:51 Dose: 1 applic Methadone HCl (Methadone) 50 mg PO DAILY [facility] Last Admin: 05/16/18 09:52 Dose: 50 mg Mupirocin (Bactroban Ointment) 0 gm TOP BID [facility] Last Admin: 05/16/18 17:16 Dose: 1 applic - Labs Labs: 05/04/18 23:37 05/04/18 23:37 PT 13.6 SECONDS (9.7-12.2) H 05/04/18 23:37 INR 1.2 05/04/18 23:37 APTT 28 SECONDS (21-34) 05/04/18 23:37 - Constitutional Appears: Non-toxic - Head Exam Head Exam: ATRAUMATIC - Eye Exam Eye Exam: Normal appearance Pupil Exam: NORMAL ACCOMODATION - ENT Exam ENT Exam: Mucous Membranes Dry - Neck Exam Neck Exam: Full ROM - Respiratory Exam Respiratory Exam: Decreased Breath Sounds - Cardiovascular Exam Cardiovascular Exam: REGULAR RHYTHM - GI/Abdominal Exam GI & Abdominal Exam: Normal Bowel Sounds - Exam Exam: NORMAL INSPECTION - Extremities Exam Additional comments: skin rough itchy bleeding - Back Exam Back Exam: NORMAL INSPECTION - Neurological Exam Neurological Exam: Alert, Awake, Oriented x3 - Psychiatric Exam Psychiatric exam: Normal Affect - Skin Skin Exam: Pallor Assessment and Plan - Assessment and Plan (Free Text) Assessment: dermatitis pain lower ext difficulty ambulating Plan: as ordered
[2018-05-17] MEDS: Ammonium Lactate 12% Lotion (225 g) EXT SCH (10:14)
[2018-05-17] MEDS: Benzocaine/Menthol (Cepacol) Lozenge MT SCH ×3 (10:15→17:52)
[2018-05-17] MEDS: CALAMINE TOP SCH ×2 (11:08→17:51)
[2018-05-17] MEDS: PRAMOXINE TOP SCH ×2 (11:08→17:51)
[2018-05-18] MEDS: Albuterol-Ipratrop 3 mg / 0.5 (3 ml) UD INH SCH ×2 (07:55→13:25)
[2018-05-18] MEDS: Benzocaine/Menthol (Cepacol) Lozenge MT SCH ×2 (09:44→13:29)
[2018-05-18] MEDS: Ammonium Lactate 12% Lotion (225 g) EXT SCH (09:47)
[2018-05-18 10:01] VITALS: BP 112/66
[2018-05-18 10:27] VITALS: PULSE 66; TEMP 98.1; O2SAT 95
[2018-05-18] MEDS: CALAMINE TOP SCH (10:39)
[2018-05-18] MEDS: PRAMOXINE TOP SCH (10:39)
[2018-05-18 11:14] LABS: BASO # 0.1 K/uL (0.0-0.2); EOS # 0.2 K/uL (0.0-0.7); HEMOGLOBIN 11.5 g/dL (12.0-18.0); LYMPH # 0.9 K/uL (1.0-4.3); MONO # 0.3 K/uL (0.0-0.8); NRBC % 0.1 % (0.0-2.0)
[2018-05-18 11:17] LABS: BASO % 2.7 % (0.0-2.0); EOS % 5.9 % (0.0-4.0); MEAN CELL VOLUME 88.5 fL (80.0-94.0); MEAN CORPUSCULAR HEMOGLOBIN 28.5 pg (27.0-31.0); MEAN CORPUSCULAR HGB CONC 32.2 g/dL (33.0-37.0); MEAN PLATELET VOLUME 8.5 fL (7.2-11.7); MONO % 9.9 % (0.0-10.0); NEUT # 1.8 K/uL (1.8-7.0); NEUT % 54.5 % (50.0-75.0); RBC 4.04 Mil/uL (4.40-5.90); RED CELL DISTRIBUTION WIDTH 15.5 % (11.5-14.5)
[2018-05-18 11:18] LABS: WHITE BLOOD COUNT 3.3 K/uL (4.8-10.8)
[2018-05-18 11:21] LABS: BLOOD UREA NITROGEN 24 mg/dL (9-20); CALCIUM 9.4 mg/dl (8.6-10.4); GFR NON-AFRICAN AMERICAN > 60
[2018-05-18] MEDS ORDERED: Pneumococcal 23-Valent Vaccine IM ONE (12:11)
--- NOTE | 2018-05-18 12:12 | CP.PCM.PN ---
Subjective - Date & Time of Evaluation Date of Evaluation: 05/18/18 Time of Evaluation: 12:10 - Subjective Subjective: pt seen and examined no cough feelsbeter refused rehab Objective - Vital Signs/Intake and Output Vital Signs (last 24 hours): Temp Pulse Resp BP Pulse Ox 98.1 F 66 20 112/66 95 05/18/18 10:26 05/18/18 10:26 05/18/18 10:26 05/18/18 10:26 05/18/18 10:26 Intake and Output: 05/18/18 05/18/18 06:59 18:59 Intake Total 240 Balance 240 - Medications Medications: Current Medications Acetaminophen (Tylenol 325mg Tab) 650 mg PO Q6 PRN PRN Reason: Pain, moderate (4-7) Last Admin: 05/16/18 23:54 Dose: 650 mg Albuterol/Ipratropium (Duoneb 3 Mg/0.5 Mg (3 Ml) Ud) 3 ml INH RQ6 [facility] Last Admin: 05/18/18 07:55 Dose: 3 ml Benzocaine/Menthol (Cepacol Sore Throat) 1 pankaj MT TID [facility] Last Admin: 05/18/18 09:44 Dose: 1 pankaj Buspirone HCl (Buspar) 10 mg PO BID [facility] Last Admin: 05/18/18 09:44 Dose: 10 mg Furosemide (Lasix) 20 mg PO DAILY [facility] Last Admin: 05/18/18 09:44 Dose: 20 mg Gabapentin (Neurontin) 300 mg PO BID [facility] Last Admin: 05/18/18 09:41 Dose: 300 mg Hydrocortisone (Cortizone 0.5% Cream) 0 applic TOP BID [facility] Last Admin: 05/18/18 10:39 Dose: 1 applic Lactic Acid (Lac-Hydrin 12% Lotion (225 G)) 0 gm EXT DAILY [facility] Last Admin: 05/18/18 09:47 Dose: 1 applic Methadone HCl (Methadone) 50 mg PO DAILY [facility] Mupirocin (Bactroban Ointment) 0 gm TOP BID [facility] Last Admin: 05/18/18 09:45 Dose: 1 applic Pramoxine/Calamine/Camphor (Caladryl) 4 ml TOP BID [facility] Last Admin: 05/18/18 10:39 Dose: 1 applic - Labs Labs: 05/18/18 11:04 05/18/18 11:04 PT 13.6 SECONDS (9.7-12.2) H 05/04/18 23:37 INR 1.2 05/04/18 23:37 APTT 28 SECONDS (21-34) 05/04/18 23:37 - Constitutional Appears: Non-toxic - Head Exam Head Exam: ATRAUMATIC - Eye Exam Eye Exam: Normal appearance Pupil Exam: NORMAL ACCOMODATION - ENT Exam ENT Exam: Normal Exam - Neck Exam Neck Exam: Full ROM - Respiratory Exam Respiratory Exam: Clear to Ausculation Bilateral - Cardiovascular Exam Cardiovascular Exam: REGULAR RHYTHM - GI/Abdominal Exam GI & Abdominal Exam: Normal Bowel Sounds - Exam Exam: NORMAL INSPECTION External exam: NORMAL EXTERNAL EXAM - Psychiatric Exam Psychiatric exam: Normal Affect Additional comments: skin dermatitis - Skin Skin Exam: Pallor Assessment and Plan - Assessment and Plan (Free Text) Assessment: ac cough improved dermatitis legs continu med disch home and pt Plan: as ordered
--- NOTE | 2018-05-18 16:40 | CP.PCM.PN ---
Subjective - Date & Time of Evaluation Date of Evaluation: 05/18/18 Time of Evaluation: 11:00 - Subjective Subjective: alert, awake, no acute distress noted. Objective - Vital Signs/Intake and Output Vital Signs (last 24 hours): Temp Pulse Resp BP Pulse Ox 98.1 F 66 20 112/66 95 05/18/18 10:26 05/18/18 10:26 05/18/18 10:26 05/18/18 10:26 05/18/18 10:26 Intake and Output: 05/18/18 05/18/18 06:59 18:59 Intake Total 240 Balance 240 - Labs Labs: 05/18/18 11:04 05/18/18 11:04 PT 13.6 SECONDS (9.7-12.2) H 05/04/18 23:37 INR 1.2 05/04/18 23:37 APTT 28 SECONDS (21-34) 05/04/18 23:37 Assessment and Plan - Assessment and Plan (Free Text) Assessment: 63 year old female admitted with pneumonia and cellulitis of the lower extremities, seen and examined. Alert and orientedx3, no sob or chest pains, resolved the acute problems. Discussed with DR Chandler, plan to discharge home today. Advised to follow up at the methadone clinic for further methadone maintainance. Patient plan to stay with his freind for the time.
== END 2018-05-18 15:49 | disposition home or self-care (01) | DRG 89 ==
LOC: C.ER 22:24 → C.9E 05-05 05:18 → C.3T 05-05 20:01
PROVIDERS: ADMIT Internal Medicine; ATTEND Internal Medicine
PROC: 0HBRXZZ Excision of Toe Nail, External Approach (ICD-10-PCS; principal; 2018-05-06)
PROC: 0HBRXZZ Excision of Toe Nail, External Approach (ICD-10-PCS; 2018-05-06)
PROC: 0HBRXZZ Excision of Toe Nail, External Approach (ICD-10-PCS; 2018-05-06)
PROC: 0HBRXZZ Excision of Toe Nail, External Approach (ICD-10-PCS; 2018-05-06)
PROC: 0HBRXZZ Excision of Toe Nail, External Approach (ICD-10-PCS; 2018-05-06)
PROC: 0HBRXZZ Excision of Toe Nail, External Approach (ICD-10-PCS; 2018-05-06)
PROC: 0HBRXZZ Excision of Toe Nail, External Approach (ICD-10-PCS; 2018-05-06)
PROC: 0HBRXZZ Excision of Toe Nail, External Approach (ICD-10-PCS; 2018-05-06)
PROC: 0HBRXZZ Excision of Toe Nail, External Approach (ICD-10-PCS; 2018-05-06)
PROC: 0HBRXZZ Excision of Toe Nail, External Approach (ICD-10-PCS; 2018-05-06)
DX: J18.9 Pneumonia, unspecified organism (principal); L03.116 Cellulitis of left lower limb; L03.115 Cellulitis of right lower limb; J44.0 Chronic obstructive pulmonary disease with (acute) lower respiratory infection; F11.20 Opioid dependence, uncomplicated; E11.42 Type 2 diabetes mellitus with diabetic polyneuropathy; L60.2 Onychogryphosis; L30.9 Dermatitis, unspecified; I10 Essential (primary) hypertension; F17.210 Nicotine dependence, cigarettes, uncomplicated; L85.3 Xerosis cutis; R60.9 Edema, unspecified; Z87.01 Personal history of pneumonia (recurrent)